=== PATIENT | female | born 1985 | race Caucasian/White ===

== ENCOUNTER 2019-04-15 08:32 | Emergency (ER) | payer SELFPAY ==
[~2019-04-15] VITALS: Ht 162.6 cm; Wt 56.0 kg
[2019-04-15] MEDS ORDERED: ADENOSINE 3 MG/ML 2ML VIAL IV ONE ×2 (08:45)
[2019-04-15 09:00] LABS: BASOPHILS % 1.1 % (0.0-2.0); EOSINOPHILS % 1.3 % (0.0-5.0); HEMATOCRIT. 41.5 % (36.0-48.0); HEMOGLOBIN. 14.4 g/dL (12.0-16.0); LYMPHOCYTES % 22.7 % (20.0-50.0); MEAN CORPUSCULAR HEMOGLOBIN 32.1 pg (28.0-32.0); MEAN CORPUSCULAR VOLUME 92.7 fL (81.0-99.0); MEAN PLATELET VOLUME 8.3 fl (7.4-10.4); NEUTROPHILS % 68.9 % (40.0-76.0); PLATELET 273 x1000/uL (130-400); RED BLOOD CELL COUNT 4.47 mill/uL (4.2-5.4); RED CELL DISTRIBUTION WIDTH 12.6 % (11.6-14.6)
[2019-04-15 09:07] LABS: CHLORIDE 108 mEq/L (98-107)
[2019-04-15 09:10] LABS: HCG SCREEN NEGATIVE
[2019-04-15 09:31] LABS: UCG SCREEN NEGATIVE
[2019-04-15 11:26] VITALS: BP 112/78
== END 2019-04-15 11:28 | disposition home or self-care (01) ==
LOC: ER 09:23
DX: I47.1 Supraventricular tachycardia (principal)
CPT/HCPCS: 36415; 71045; 80053; 81025; 83735; 84443; 84484; 84703; 85025; 93005; 99284; Z7610